=== PATIENT | male | born 1965 | race Caucasian/White ===

== ENCOUNTER 2025-09-13 15:52 | Emergency (ER) | payer OTHER, SELFPAY ==
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
--- NOTE | ~2025-09-13 | XR_ITS ---
CLINICAL HISTORY: trauma, injury 4 view left knee Comparison: None provided Findings: No fractures or dislocations. No significant loss of joint space, osteophytes, or erosions. No joint effusion. No radiopaque foreign body. Enthesopathy at the insertion of the quadriceps tendon and origin of the patellar tendon. IMPRESSION: 1. Enthesopathy at the insertion of the quadriceps tendon and origin of the patellar tendon. 2. No acute osseous injury. This document has been electronically signed by: Brandon Benoit MD on 09/13/2025 17:37:33
--- NOTE | ~2025-09-13 | XR_ITS ---
CLINICAL HISTORY: dyspnea on exertion, chest pain 2 view chest x-ray Comparison: None provided Findings: The lungs are clear. Heart size is normal. No acute fracture. IMPRESSION: 1. No acute findings. This document has been electronically signed by: Brandon Benoit MD on 09/13/2025 17:36:57
[2025-09-13 15:58] VITALS: BP 160/100; PULSE 90; O2SAT 98
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
[2025-09-13 16:11] VITALS: BP 136/92; PULSE 95; RESP 20; TEMP 36.5; O2SAT 100; BMI 31.2
[2025-09-13 16:15] VITALS: BP 136/92; PULSE 95; RESP 20; TEMP 36.5; O2SAT 100
--- NOTE | 2025-09-13 16:15 | ECG_ITS ---
Test Reason : CP Blood Pressure : */* mmHG Vent. Rate : 82 BPM Atrial Rate : 82 BPM P-R Int : 164 ms QRS Dur : 90 ms QT Int : 352 ms P-R-T Axes : 50 -9 25 degrees QTcB Int : 411 ms Normal sinus rhythm Normal ECG When compared with ECG of 08-Oct-2010 15:52, No significant changes seen Referred By: Derick Cox Electronically Signed By: Lobo Beltran
[2025-09-13 16:22] LABS: Glucose, Whole Blood 253 mg/dL (60-115)
--- NOTE | 2025-09-13 16:24 | PC.NURSE ---
BS on arrival 253
--- OUTSIDE RECORDS SUMMARY | 2025-09-13 16:36 | XMS_ITS | Encounter Summary ---
Author Organization [employer] Address 75 [facility] 7t [place] [address] Care Team Providers Care Host/Hostess Name Role Phone Con Agee NP Primary Care Provider + [phone] Hieu Mandujano Unavailable Unavail able Nina Claudio Unavailable Unavailable Encounter Details Date Type Department Care Team (Late st Contact Info) Description 04/17/2025 Patient Outreach [facility] Case Management [address] [place] [address] Leidy Waters Social History Tobacco Use Types Packs/Day Years [...] t he electric, gas, oil or water company threatened to shut off services in your [...] AM EDT documented as of this encounter Functional Status * Over the past 2 weeks, how often have you been bothered by any of the following problems? Question Answer Date of Assessment Author Little interest or pleasure in doing things Not at all 04/19/2025 8:24 AM EDT Cheri Napoles RMA Feeling down, depressed, or hopeless Not at all 04/19/2025 8:24 AM EDT Cheri Napoles RMA Patient Health Questionnaire -2 Score 0 04/19/2025 8:24 AM EDT Cheri Napoles RMA documented as of this encounter Plan of Treatment Upcoming Encounters Date Type Department Care Team (Late st Contact Info) Description 10/12/2025 9:20 AM EST Office Visit [facility] MEDICAL [address] [place] [address] Darlene Gillis MD 70 [place] [address] 10/24/2025 8:30 AM EST Office Visit [facility] Dental [address] [place] [address] Estrella Bowen LLD 9 [place] [address] documented as of this encounter Visit Diagnoses Not on filedocumented in this encounter Care Teams Host/Hostess Relationship Specialty Start Date End Date Con Agee NP 70 [place] [address] PCP - General Internal Medicine 02/25/23 Hieu Mandujano Community Health Worker 09/07/23 Nina Claudio Community Health Worker 01/25/24 Dodie Scherer Armor Officer 09/02/23 documented as of this encounter
--- OUTSIDE RECORDS SUMMARY | 2025-09-13 16:36 | XMS_ITS | Encounter Summary ---
Author Organization [employer] Address 75 [facility] 7t [place] [address] Care Team Providers Care Lumber Driver Name Role Phone Con Agee [employer] Primary Care Provider + [phone] Hieu Mandujano Unavailable Unavail able Nina Claudio Unavailable Unavailable Encounter Details Date Type Department Care Team (Late st Contact Info) Description 01/02/2025 Orders Only [facility] [address] [place] [address] Con Agee, JITENDRA [address] [place] [address] Social History Tobacco Use Types Packs/Day Years Used Date Smoking Tobacco: Never Smokeless Tobacco: Never Alcohol Use Standard Drinks/Week Comments Not Currently 3 (1 standard drink = 0.6 oz pur e alcohol) 1x a month PHQ-2 Answer Date Recorded Patient Health Questionnaire-2 Score 0 03/11/2023 Housing Stability Answer Date Recorded What is your housing situation today? I have lilia howard 08/02/[address] you li ve. Do you have problems with any of the following? None of the above 08/02/2023 Food Insecurity Answer Date Recorded Within the past 12 months, y ou worried that your food would run out before you got money to buy more: Never True 08/02/2023 Within the past 12 months,th e food you bought just didn't last and you didn't have enough money to get more: Never True Transportation Answer Date Recorded In the past 12 months, has l ack of transportation kept you from medical appts, meetings, work or from getting things needed for daily living? No 08/02/2023 Intimate Partner Violence Answer Date R ecorded [...] the past 12 months, has t he [employer], gas, oil or water company threatened to shut off services in your home? I am not sure 03/16/2024 Depression Answer Date Recorded Patient Health Questionnaire-2 Score 0 03/11/2023 Sex and Gender Information Value Date Recorded Sex Assigned at Male 02/25/2023 8:51 AM EDT Legal Sex Male 8:47 AM EDT Gender Identity Male 02/25/2023 8:51 AM EDT Sexual Orientation Straight 02/25/2023 9: 26 AM EDT documented as of this encounter Plan of Treatment Upcoming Encounters Date Type Department Care Team (Late st Contact Info) Description 10/12/2025 9:20 AM EST Office Visit [facility] MEDICAL [address] [place] [address] Darlene Gillis MD [address] [place] [address] 10/24/2025 8:30 AM EST Office Visit [facility] [address] [place] [address] Estrella Bowen LLD 9 [place] [address] documented as of this encounter Procedures Procedure Name Priority Date/Time Associated Diagnosis Comments BASIC METABOLIC PANEL Routine 01/01/2025 9:19 AM EDT XR CHEST 2 VIEWS Routine 01/01/2025 9:18 AM EDT documented in this encounter Results * Basic Metabolic Panel (01/01/2025 9:19 AM EDT) Blood Venous blood specimen / Unknown Con Agee [employer] LAB BLOOD ORDERABLES Final R esult * XR Chest 2 Views (01/01/2025 9:18 AM EDT) Anatomical Region Laterality Modality Chest Radiographic Cha ging Con Agee VP [employer] IMG XR PROCEDURES Final Resu lt documented in this encounter Visit Diagnoses Not on filedocumented in this encounter Care Teams Lumber Driver Relationship Specialty Start Date End Date Con Agee NP [address] [place] [address] PCP - General Internal Medicine 02/25/23 Hieu Mandujano Community Health Worker 09/07/23 Nina Claudio Community Health Worker 01/25/24 Dodie Scherer Solar Resource Assessor 09/02/23 documented as of this encounter
--- OUTSIDE RECORDS SUMMARY | 2025-09-13 16:36 | XMS_ITS | Encounter Summary ---
Author Organization [facility] Address [address] [place] [address] [place] [address] Phone Care Team Providers Care Well Logger Name Role Phone Pcp, Unknown Primary Care Provider Unavailabl e Encounter Details Date Type Department Care Team (Late st Contact Info) Description 11/22/2023 Procedure Pass [facility], Ct Scan - [address] [address] Social History Tobacco Use Types Packs/Day Years Used Date Smoking Tobacco: Never Assessed Education Answer Date Recorded Are you interested in more education? Not on josie e 11/22/2023 Are you concerned about learning? Not on file 11/22/2023 No 11/22/2023 No 11/22/2023 Digital Access Answer Date Recorded No 11/22/2023 No 11/22/2023 Reliable internet access at home? Not on file 11/22/2023 Device with a working camera? Not on file Sex and Gender Information Value Date Recorded Sex Assigned at Male 11/22/2023 5:30 PM EST Legal Sex Female 5:18 PM EST Gender Identity Male 11/22/2023 5:30 PM EST Sexual Orientation Not on file documented as of this encounter Functional Status * Calculated C-SSRS Risk Score (Lifetime/Recent) Answer Date of Assessment Author No Risk Indicated 11/22/2023 5:30 PM EST Erick Erwin RN * [place] Suicide Severity Rating Scale (Screener/Recent Self-Report) Question Answer Date of Assessment Author 1. Wish to be (Past 1 Month) No 11/22/2023 5:30 PM EST Erick Erwin RN 2. Non-Specific Active Suicidal Thoughts (Past 1 Month) No 11/22/2023 5:30 PM Erick Giraldo, ЛЮИЯ 6. Suicidal Behavior (Lifetime) No 11/22/2023 5:30 PM Erick Giraldo RN documented as of this encounter Plan of Treatment Not on file documented as of this encounter Visit Diagnoses Not on filedocumented in this encounter Care Teams Well Logger Relationship Specialty Start Date End Date Pcp, Unknown PCP - General 11/22/23 documented as of this encounter Additional Source Comments The information contained in this document represents components of the legal health record. It is not the complete legal health record.[facility]
--- OUTSIDE RECORDS SUMMARY | 2025-09-13 16:36 | XMS_ITS | Encounter Summary ---
Author Organization [facility] Address [address] [place] [address] Phone Care Team Providers Care Supervisor Frame Sample And Pattern Name Role Phone Pcp, Unknown Primary Care Provider Unavailabl e Encounter Details Date Type Department Care Team (Late st Contact Info) Description 02/17/2024 Ancillary Orders [facility], X-Ray - [address] [place] [address] Con Agee, JITENDRA 70 [place] [address] Left leg pain (Primary Dx) Social History Tobacco Use Types Packs/Day Years [...] on file documented as of this encounter Plan of Treatment Not on file documented as of this encounter Results * XR Tibia Fibula 2 Views (Left) (02/17/2024 12:34 PM EDT) Anatomical Region Laterality Modality Leg Left Computed Radiogr aphy 02/18/2024 4:50 PM EDT Impressions 02/18/2024 4:51 PM EDT Nonspecific soft tissue irregularity throughout the lower leg. No acute osseous abnormality in the left tibia/fibula. Narrative 02/18/2024 4:51 PM EDT XR TIBIA FIBULA 2 VIEWS (LEFT) Referring clinician's provided indication for this examination in Epic: Pain COMPARISON: No relevant comparison. FINDINGS: No fracture or dislocation. Partially visualized posttraumatic and degenerative findings in the left knee/ankle. Soft tissue irregularity diffusely throughout the left lower leg. Procedure Note Rogerio Ruvalcaba MD - 02/18/2024 XR TIBIA FIBULA 2 VIEWS (LEFT) Referring clinician's provided indication for this examination in Epic:Pain COMPARISON: No relevant comparison. FINDINGS: No fracture or dislocation. Partially visualized posttraumatic anddegenerative findings in the left knee/ankle. Soft tissue irregularitydiffusely throughout the left lower leg. IMPRESSION: Nonspecific soft tissue irregularity throughout the lower leg. No acuteosseous abnormality in the left tibia/fibula. Con Agee SENIOR MARKET INTELLIGENCE CONSULTANT IMG XR LOWER EXTREMIT Y Final Result documented in this encounter Visit Diagnoses Diagnosis Left leg pain Pain in soft tissues of limb Left leg pain- Primary Pain in soft tissues of limb documented in this encounter Care Teams Supervisor Frame Sample And Pattern Relationship Specialty Start Date End Date Pcp, Unknown PCP - General 11/22/23 documented as of this encounter Additional Source Comments The information contained in this document represents components of the legal health record. It is not the complete legal health record.[facility]
--- OUTSIDE RECORDS SUMMARY | 2025-09-13 16:36 | XMS_ITS | Encounter Summary ---
Author Organization [facility] Address [address] [place] [address] [place] [address] Phone Care Team Providers Care Boiler Service Technician Name Role Phone Pcp, Unknown Primary Care Provider Unavailabl e Encounter Details Date Type Department Care Team ([facility] st Contact Info) Description 02/17/2024 Transcribe Orders Virtual Department [address] [place] [address] Con Agee NP 70 [place] [address] Left leg pain (Primary Dx) Social History [...] documented as of this encounter Visit Diagnoses Diagnosis Left leg pain- Primary Pain in soft tissues of limb documented in this encounter Care Teams Boiler Service Technician Relationship Specialty Start Date End Date Pcp, Unknown PCP - General 11/22/23 documented as of this encounter Additional Source Comments The information contained in this document represents components of the legal health record. It is not the complete legal health record.[facility]
--- OUTSIDE RECORDS SUMMARY | 2025-09-13 16:36 | XMS_ITS | Encounter Summary ---
Author Organization [facility] Address [address] [place] [address] [place] [address] Phone Care Team Providers Care Care Asst Name Role Phone Pcp, Unknown Primary Care Provider Unavailabl e Encounter Details Date Type Department Care Team (Late st Contact Info) Description 02/17/2024 Ancillary Orders [facility], X-Ray - [address] [place] [address] Con Agee, JITENDRA [address] [place] [address] Left leg pain (Primary Dx) Social History [...] limb documented in this encounter Care Teams Care Asst Relationship Specialty Start Date End Date Pcp, Unknown PCP - General 2/5/24 documented as of this encounter Additional Source Comments The information contained in this document represents components of the legal health record. It is not the complete legal health record.[facility]
--- OUTSIDE RECORDS SUMMARY | 2025-09-13 16:36 | XMS_ITS | Clinical Summary ---
Author Organization [facility] Address [address] [place] [address] Phone Care Team Providers Care Manager Printing Name Role Phone Pcp, Unknown Primary Care Provider Unavailabl e Allergies Active Allergy Reactions Criticality Noted Date Comments Bee Pollen 11/22/2023 Chocolate 11/22/2023 Influenza Virus Vac. Tri-Split 11/22 Lactose 11/22/2023 Latex 11/22/2023 Niacin 11/22/2023 Penicillins 11/22/2023 Phenytoin 11/22/2023 Tomato 11/22/2023 Medications atorvastatin (LIPITOR) 40 MG tablet Take 40 mg by mouth daily. 03/20/2023 Active lisinopril (PRINIVIL,ZESTRI L) 10 MG tablet Take 10 mg by mouth daily. 11/09/2023 Active metFORMIN (GLUCOPHAGE) 500 MG tablet Take 500 mg by mouth 2 (two) times a day with meals. 03/11/2023 Active metoprolol tartrate (LOPRESSOR) 25 MG tablet Take 25 mg by mouth 2 (two) times a day. 03/20/2023 Active gabapentin (NEURONTIN) 100 MG capsule Take 100 mg by mouth 3 (three) times a day. 01/20/2023 Active Active Problems No known active problems Social History Tobacco Use Types Packs/Day Years [...] with a working camera? Not on file Intimate Partner Violence Answer Date R ecorded Are you denied basic needs s uch as food, clothing, or medical care? No 03/09/2024 In the past 12 months have y ou been in a relationship with a person who hurts, threatens, or tries to control you? No 03/09/2024 Are you denied basic needs s uch as food, clothing, or medical care? No 03/09/2024 In the past 12 months have y ou been in a relationship with a person who hurts, threatens, or tries to control you? No 03/09/2024 Sex and Gender Information Value Date Recorded Sex Assigned at Male 11/22/2023 5:30 PM EST Legal Sex Female 5:18 PM EST Gender Identity Male 11/22/2023 5:30 PM EST Sexual Orientation Not on file Last Filed Vital Signs Vital Sign Reading Time Taken Comments Blood Pressure 121/88 03/09/2024 1:16 PM EDT Pulse 82 03/09/2024 1:17 PM EDT Temperature 36.7 C (98 F) 03/09/2024 1:16 PM EDT Respiratory Rate 16 03/09/2024 1:16 PM EDT Oxygen Saturation 99% 03/09/2024 1:16 PM EDT Inhaled Oxygen Concentration - - Weight 100.7 kg (222 lb) 03/09/2024 1:16 PM EDT Height 180.3 cm (5' 11 ) 03/09/2024 1:16 PM EDT Body Mass Index 30.96 03/09/2024 1:16 PM EDT Plan of Treatment Health Maintenance Due Date Last Done Comments DEPRESSION SCREENING 1977 SMOKING Hx and SMOKELESS TOBACCO SCREENING 1978 HEPATITIS C SCREENING 1983 HIV ONE-TIME SCREENING (18-6 5 YEARS) 1983 PAP SMEAR 1986 MAMMOGRAM 2005 COLOGUARD 2010 COLONOSCOPY 2010 COLORECTAL CANCER SCREENING 2010 FIT TEST 2010 FOBT 2010 SIGMOIDOSCOPY 2010 VIRTUAL COLONOSCOPY 2010 PNEUMOCOCCAL VACCINES (50+ years) (1 of 1 - PCV) 2015 ZOSTER VACCINES (1 of 2) 2015 CREATININE LEVEL 03/09/2025 03/09/2024, 11/22/2023 POTASSIUM LEVEL 03/09/2025 03/09/2024, 11/22/2023 COVID-19 VACCINE (1 - 2024-2 6 season) 2025 SCREENING FOR DIABETES 01/17/2027 01/18/2024 LIPID PANEL 03/05/2028 03/05/2023 Adult Td,Tdap Booster 03/17/2032 03/17/2022 , 06/17/2018 RSV VACCINE (1 - 1-dose 75+ series) 2040 HEPATITIS A VACCINES Aged Out No long er eligible based on patient's age to complete this topic HIB VACCINES Aged Out No longer eligi ble based on patient's age to complete this topic MENINGOCOCCAL VACCINES (ACWY) Aged Out No longer eligible based on patient's age to complete this topic MENINGOCOCCAL VACCINES (B) Aged Out N o longer eligible based on patient's age to complete this topic Medical Devices Not on file Procedures Procedure Name Priority Date/Time Associated Diagnosis Comments BASIC METABOLIC PANEL (BMP) STAT 03/09/2024 1:39 PM EDT from Last 3 Months or Most Recently Relevant to Health Maintenance Results * (ABNORMAL) Basic metabolic panel (03/09/2024 1:39 PM EDT) SODIUM 137 133 - 146 mmol/L [facility] CHLORIDE 102 96 - 108 mmol/L [facility] POTASSIUM 4.1 3.3 - 5.1 mmol/L [facility] Comment:Specimen slightly he molyzed, result may be falsely elevated. CO2 24 21 - 35 mmol/L [facility] BUN 15 6 - 19 mg/dL [facility] CREATININE 0.80 0.5 - 1.5 mg/dL [facility] GLUCOSE 253(H) 70 - 99 mg/dL [facility] CALCIUM 9.9 8.4 - 10.3 mg/dL [facility] EGFR 85 >59 mL/min/1.7 3m2 [facility] Comment:Estimated glomerular filtration rate calculated using the CKD-EPI refit equation. ANION GAP 15 10 - 20 mmol/L [facility] Blood 03/09/2024 1:39 PM EDT 03/09/2024 1:44 PM EDT Jude Santana Caffyn DO LAB BLOOD BKR ORDERABLES Final Result Performing Organization Address City/State/[facility] Co de Phone Number [facility] [address] [place] [address] from Last 3 Months or Most Recently Relevant to Health Maintenance Insurance [facility] MEDICARE REPLACEMENT [facility] MEDICARE REPLACEMENT [id number] [facility] MEDICARE REPLACEMENT MEDICARE REPLACEMENT MEDICARE REPLACEMENT SUSI GARCIA [facility] Care Teams Manager Printing Relationship Specialty Start Date End Date Pcp, Unknown PCP - General 11/22/23 Additional Source Comments The information contained in this document represents components of the legal health record. It is not the complete legal health record.[facility]
--- OUTSIDE RECORDS SUMMARY | 2025-09-13 16:36 | XMS_ITS | Encounter Summary ---
Author Organization [employer] Address [address] [facility] 7t [place] [address] Care Team Providers Care Staff Occupational Therapist Name Role Phone Con Agee COW PUNCHER Primary Care Provider + [phone] Hieu Mandujano Unavailable Unavail able Nina Claudio Unavailable Unavailable Reason for Visit * Reason Comments Med Refill Encounter Details Date Type Department Care Team (Late st Contact Info) Description 01/24/2025 Refill [facility] [address] [place] [address] Con Agee, JITENDRA [address] [place] [address] Social History Tobacco Use Types Packs/Day Years [...] Description 10/12/2025 9:20 AM EST Office Visit [place] [facility] [address] [place] [address] Darlene Gillis MD [address] [place] [address] 10/24/2025 8:30 AM EST Office Visit [place] [facility] [address] [place] [address] Estrella Bowen LLD [address] [place] [address] documented as of this encounter Visit Diagnoses Not on filedocumented in this encounter Care Teams Staff Occupational Therapist Relationship Specialty Start Date End Date Con Agee NP [address] [place] [address] PCP - General Internal Medicine 02/25/23 Hieu Mandujano Community Health Worker 09/07/23 Nina Claudio Community Health Worker 01/25/24 Dodie Scherer Aquatic Facility Manager 09/02/23 documented as of this encounter
--- OUTSIDE RECORDS SUMMARY | 2025-09-13 16:36 | XMS_ITS | Encounter Summary ---
Author Organization [employer] Address 75 [facility] 7t [place] [address] Care Team Providers Care Field Superintendent Name Role Phone Con Agee NP Primary Care Provider + [phone] Hieu Mandujano Unavailable Unavail able Nina Claudio Unavailable Unavailable Encounter Details Date Type Department Care Team (Late st Contact Info) Description 02/17/2024 Telephone [place] [facility] MED[facility] [address] [place] [address] Johanne Rucker, ЮЛИЯ Social History Tobacco Use Types Packs/Day Years [...] things needed for daily living? No 08/02/2023 Utilities Answer Date Recorded In the past 12 months, has t he electric, gas, oil or water company threatened to shut off services in your home? No 08/02/2023 Depression Answer Date Recorded Patient Health Questionnaire-2 Score 0 03/11/2023 Sex and Gender Information Value Date Recorded Sex Assigned at Male 02/25/2023 8:51 AM EDT Legal Sex Male 8:47 AM EDT Gender Identity Male 02/25/2023 8:51 AM EDT Sexual Orientation Straight 02/25/2023 9: 26 AM EDT documented as of this encounter Miscellaneous Notes * Telephone Encounter - Johanne Rucker RN - 02/18/2024 8:36 AM EDT LMOM to notify pt of new letter. Letter let with cornice upholsterer for pt to picker. * Telephone Encounter - Con Agee NP - 02/17/2024 5:20 PM EDT I cannot change my old letter, which I do think was correct at the time it was written. I have written a new letter to be given to the patient in support of his request for housing assistance. (In provider box at [facility]). If pt has other housing related issues, he should speak to a CHW (Nina). Thanks. * Telephone Encounter - Johanne Rucker RN - 02/17/2024 11:17 AM EDT Pt came to cornice upholsterer after his appt with [facility]. Pt reports that the letter that [facility] wrote for housing is all wrong . Pt reports he needs to letter to state that he has sob. Pt is also unhappy with the mention of mental health in the letter. Pt states that he used to walk 30 miles a day and not he is out of breath when he lean over to tie his shoes., dizziness when going from sitting to standing. States he now need help taking out the garbage and has a friend helping him with these tasks. Pt reports that he has fallen multiple times recently and states he has been unconscious 3x due to falls. Pt is speaking in full sentences and with no labored breathing noted. Pt states that he needs JL to amend the letter today or he will lose his housing. Pt states the original letter was submitted to housing- unclear the status/outcome of letter. Routing to pcp as fyi documented in this encounter Plan of Treatment Upcoming Encounters Date Type Department Care Team (Late st Contact Info) Description 10/12/2025 9:20 AM EST Office Visit [facility] MED[facility] [address] [place] [address] Darlene Gillis MD [address] [place] [address] 10/24/2025 8:30 AM EST Office Visit [facility] Dental [address] [place] [address] Estrella Bowen LLD 9 [place] [address] documented as of this encounter Visit Diagnoses Not on filedocumented in this encounter Care Teams Field Superintendent Relationship Specialty Start Date End Date Con gAee NP [address] [place] [address] PCP - General Internal Medicine 02/25/23 Hieu Mandujano Community Health Worker 09/07/23 Nina Claudio Community Health Worker 01/25/24 Dodie Scehrer Sulphate Tester 09/02/23 documented as of this encounter
--- OUTSIDE RECORDS SUMMARY | 2025-09-13 16:36 | XMS_ITS | Encounter Summary ---
Author Organization [facility] Address [address] [place] [address] [place] [address] Phone Care Team Providers Care Addiction Professional Name Role Phone Pcp, Unknown Primary Care Provider Unavailabl e Encounter Details Date Type Department Care Team ([facility] st Contact Info) Description 03/01/2024 Transcribe Orders Virtual Department [address] [place] [address] Con Agee NP [address] [place] [address] Thyroid nodule (Primary Dx) Social History Tobacco Use Types [...] as of this encounter Visit Diagnoses Diagnosis Thyroid nodule- Primary Nontoxic uninodular goiter documented in this encounter Care Teams Addiction Professional Relationship Specialty Start Date End Date Pcp, Unknown PCP - General 11/22/23 documented as of this encounter Additional Source Comments The information contained in this document represents components of the legal health record. It is not the complete legal health record.[facility]
--- OUTSIDE RECORDS SUMMARY | 2025-09-13 16:36 | XMS_ITS | Clinical Summary ---
Author Organization [facility] ity Address [address] [place] [address] Care Team Providers Care Shrimping Boat Captain Name Role Phone Unavailable Primary Care Provider Unavailabl e Social History Tobacco Use Types Packs/Day Years Used Date Smoking Tobacco: Never Assessed Sex and Gender Information Value Date Recorded Sex Assigned at Not on file Legal Sex Male 11:06 PM EST Gender Identity Not on file Sexual Orientation Not on file Plan of Treatment Health Maintenance Due Date Last Done Comments Hepatitis B Vaccines (1 of 3 - 19+ 3-dose series) 1984 Pneumococcal Vaccine: 50+ Years (1 of 1 - PCV) 2015 Zoster Vaccines (1 of 2) 2015 Depression Screening 10/18/2024 COVID-19 Vaccine ( season) 2025 10/07/2023, 10/22/2021, 03/09/2021, Additional history exists Influenza Vaccine (#1) 2025 DTaP,Tdap,and Td Vaccines (3 - Td or Tdap) 03/17/2032 03/17/2022, 06/17/2018 RSV Immunization Adult Patients (1 - 1-dose 75+ series) 2040 HIB Vaccines Aged Out No longer eligi ble based on patient's age to complete this topic HPV Vaccines Aged Out No longer eligi ble based on patient's age to complete this topic Hepatitis A Vaccines Aged Out No long er eligible based on patient's age to complete this topic IPV Vaccines Aged Out No longer eligi ble based on patient's age to complete this topic MMR Vaccines Aged Out No longer eligi ble based on patient's age to complete this topic Meningococcal ACWY Vaccine Aged Out N o longer eligible based on patient's age to complete this topic Meningococcal B Vaccine Aged Out No l onger eligible based on patient's age to complete this topic RSV Immunization Patients Under 20 months Aged Out No longer eligible based on patient's age to complete this topic Varicella Vaccines Aged Out No longer eligible based on patient's age to complete this topic
--- OUTSIDE RECORDS SUMMARY | 2025-09-13 16:36 | XMS_ITS | Encounter Summary ---
Author Organization [employer] Address [address] [facility] 7t [place] [address] Care Team Providers Care Professional Bass Fisher Name Role Phone Con Agee NP Primary Care Provider + [phone] Hieu Mandujano Unavailable Unavail able Nina Claudio Unavailable Unavailable Encounter Details Date Type Department Care Team (Late st Contact Info) Description 03/13/2024 Orders Only [facility] MEDICAL [address] [place] [address] Provider, MD Radha Social History Tobacco Use Types Packs/Day Years [...] the past 12 months, has t he [employer], gas, oil or water [employer] threatened to shut off services in your [...] Description 10/12/2025 9:20 AM EST Office Visit [facility] MEDICAL [address] [place] [address] Darlene Gillis MD [address] [place] [address] 10/24/2025 8:30 AM EST Office Visit [facility] Dental [address] [place] [address] Estrella Bowen LLD [address] [place] [address] documented as of this encounter Procedures Procedure Name Priority Date/Time Associated Diagnosis Comments ECG 12-LEAD Routine 03/03/2024 8:40 AM EDT documented in this encounter Results * ECG 12 lead (03/03/2024 8:40 AM EDT) us Historical Provider ECG ORDERABLES Final Res ult documented in this encounter Visit Diagnoses Not on filedocumented in this encounter Care Teams Professional Bass Fisher Relationship Specialty Start Date End Date Con Agee NP [address] [place] [address] PCP - General Internal Medicine 02/25/23 Hieu Mandujano Community Health Worker 09/07/23 Nina Claudio Community Health Worker 01/25/24 Dodie Scherer Processing Technologist 09/02/23 documented as of this encounter
--- OUTSIDE RECORDS SUMMARY | 2025-09-13 16:36 | XMS_ITS | Encounter Summary ---
Author Organization [employer] Address [address] [facility] 7t [place] [address] Care Team Providers Care Tube Molder Fiberglass Name Role Phone Con Agee WATER RESOURCES PROGRAM DIRECTOR Primary Care Provider + [phone] Hieu Mandujano Unavailable Unavail able Nina Claudio Unavailable Unavailable Encounter Details Date Type Department Care Team (Late st Contact Info) Description 06/29/2024 Orders Only [facility] [address] [place] [address] Con Agee, JITENDRA [address] [place] [address] Social History Tobacco Use Types Packs/Day Years [...] the past 12 months, has t he [employer], gas, oil or water company threatened to [...] Description 10/12/2025 9:20 AM EST Office Visit [facility] MEDICAL [address] [place] [address] Darlene Gillis MD [address] [place] [address] 10/24/2025 8:30 AM EST Office Visit [facility] Dental [address] [place] [address] Estrella Bowen LLD 9 [place] [address] documented as of this encounter Procedures Procedure Name Priority Date/Time Associated Diagnosis Comments ECG 12-LEAD Routine 06/26/2024 9:34 AM EDT documented in this encounter Results * ECG 12 lead (06/26/2024 9:34 AM EDT) Con Agee NP ECG ORDERABLES Final Result documented in this encounter Visit Diagnoses Not on filedocumented in this encounter Care Teams Tube Molder Fiberglass Relationship Specialty Start Date End Date Con Agee NP [address] [place] [address] PCP - General Internal Medicine 02/25/23 Hieu Mandujano Community Health Worker 09/07/23 Nina Claudio Community Health Worker 01/25/24 Dodie Scherer Pediatric Physical Therapy Assistant 09/02/23 documented as of this encounter
--- OUTSIDE RECORDS SUMMARY | 2025-09-13 16:36 | XMS_ITS | Clinical Summary ---
Author Organization [employer] Address [address] [facility] 7t [place] [address] Care Team Providers Care Tomography Technologist Name Role Phone Con Agee NP Primary Care Provider [phone] Hieu Mandujano Unavailable Unavail able Nina Claudio Unavailable Unavailable Allergies Active Allergy Reactions Criticality Noted Date Comments Bee Venom 03/03/2023 Chocolate Rash Low 03/04/2023 Influenza Virus Vaccine 03/05/2023 Lactose 03/05/2023 Latex 03/03/2023 Niacin 03/05/2023 Penicillins Swelling 03/03/2023 Phenytoin 03/05/2023 Tomato 03/05/2023 ketchup Medications chlorhexidine (Peridex) 0.12 % solution SWISH AND RINSE WITH 15MLS TWICE DAILY FOR 30 SECONDS THEN SPIT OUT 120 mL 03/20/20 23 Active Additional Information Patient not taking.Reported on 09/11/2025 Ketoconazole 1 % shampooIndicati ons:Seborrheic dermatitis of scalp Shampoo and leave on for 5-10 minutes, then rinse. Use for scaly skin on scalp, face and chest. Use every other day Do not start before November 11, 2023. 200 mL 2 11/11/19 24 Active Additional Information Patient not taking.Reported on 09/11/2025 cyclobenzaprine (Flexeril) 10 MG tablet TAKE 1 TABLET BY MOUTH 3 TIMES A DAY,X10 DAYS, NEEDED FOR SPASM 01/24/20 24 Active atorvastatin (Lipitor) 40 MG tabletIndicatio ns:Hypercholest eremia Take 1 tablet (40 mg) by mouth Once per day. 90 tablet 3 05/02/20 24 Active metoprolol tartrate (Lopressor) 25 MG tablet Take 1 tablet (25 mg) by mouth 2 times daily. 180 tablet 3 12/30/19 25 2025 Active Alcohol Swabs (Alcohol Prep Pads) 70 % padsIndications :Type 2 diabetes mellitus with other circulatory complication, without long-term current use of insulin ([facility]) 1 Pad by Other route Once per day. 100 each 3 12/30/19 25 Active glucose blood (FREESTYLE LITE) test stripIndication s:Type 2 diabetes mellitus with other circulatory complication, without long-term current use of insulin ([facility]) TEST BLOOD SUGAR DAILY 100 each 07/09/20 25 Active Dulaglutide (Trulicity) 0.75 MG/0.5ML solution auto-injectorIn dications:Type 2 diabetes mellitus with other circulatory complication, without long-term current use of insulin ([facility]) INJECT 0.5 ML UNDER THE SKIN 1 (ONE) TIME PER WEEK. 6 mL 1 5 4:46 PM EST 08/23/20 25 Active gabapentin (Neurontin) 100 MG capsuleIndicati ons:Agitation TAKE 1 CAPSULE (100 MG) BY MOUTH 3 TIMES DAILY. 90 capsule 5 4:38 PM EST 09/06/20 25 Active lisinopril 10 MG tabletIndicatio ns:Primary hypertension TAKE 1 TABLET BY MOUTH EVERY DAY 90 tablet 3 5 4:38 PM EST 09/06/20 25 Active clobetasol (Temovate) 0.05 % creamIndication s:Chronic eczema of hand Apply twice daily to eczema on wrists 30 g 1 09/11/20 25 Active clotrimazole (Lotrimin) 1 % creamIndication s:Tinea cruris Apply topically 2 times daily. Apply twice daily to itchy rash in groin for two weeks 30 g 1 09/11/20 25 Active triamcinolone (Kenalog) 0.5 % creamIndication s:Chronic eczema of hand Apply topically 3 times daily. Apply to affected skin on wrist 45 g 1 02/29/20 24 2024 Discontinued clotrimazole (Lotrimin) 1 % creamIndication s:Tinea pedis of both feet Apply topically 2 times daily. Apply between toes. NOT TO BE USED ON HANDS 30 g 1 02/29/20 24 2024 Discontinued(R eorder (will not trigger notification to Pharmacy)) Dulaglutide (Trulicity) 0.75 MG/0.5ML solution auto-injectorIn dications:Type 2 diabetes mellitus with other circulatory complication, without long-term current use of insulin (HCC) Inject 0.5 mL under the skin 1 (one) time per week. 6 mL 1 01/12/20 25 2024 Discontinued lisinopril 10 MG tabletIndicatio ns:Primary hypertension TAKE 1 TABLET BY MOUTH EVERY DAY 90 tablet 06/12/20 25 2024 Discontinued gabapentin (Neurontin) 100 MG capsuleIndicati ons:Agitation TAKE 1 CAPSULE (100 MG) BY MOUTH 3 TIMES DAILY. 90 capsule 1 07/05/202024 Discontinued Active Problems Problem Noted Date Diagnosed Date Bunion of left foot 02/29/2024 Hearing loss of left ear 03/04/2023 Thyroid nodule 03/04/2023 Obesity (BMI 30.0-34.9) 03/04/2023 Sciatica of right side 03/04/2023 TBI (traumatic brain injury) ([facility]/HCC) (self-reported, CT of head normal 2021) 03/04/2023 CAD (coronary artery disease ) (self-reported, no cardiac testing as of 12/2024) 03/03/2023 Hypercholesteremia 03/03/2023 Presence of stent in coronar y artery (self-reported, no documentation) 03/03/2023 Type 2 diabetes mellitus 03/03/2023 Chronic pain of left ankle 03/03/2023 Chronic eczema of hand 03/03/2023 Hernia, umbilical 03/03/2023 Encounters Date Type Department Care Team Description 09/11/2025 8:30 AM EST Office Visit [facility] MEDICAL [address] [place] [address] Con Agee NP Emotional lability (Primary Dx); Type 2 diabetes mellitus with other circulatory complication, without long-term current use of insulin (HCC); Primary hypertension; Hypercholesteremia; Thyroid nodule; Chronic eczema of hand; Tinea cruris 09/05/[address] [address] Con Agee NP Primary hypertension 09/05/[address] [address] Con Agee NP Agitation 08/23/[address] [address] Con Agee NP Type 2 diabetes mellitus with other circulatory complication, without long-term current use of insulin ([facility]) 07/24/2025 9:30 AM EDT Clinical Support [address] [address] Halina Robert LPN Type 2 diabetes mellitus with other circulatory complication, without long-term current use of insulin ([facility]) 07/21/2025 Results Follow-Up [address] [address] Darlene Gillis MD POCT glycosylated hemoglobin (Hgb A1c), TSH with Reflex to Free T4, Lipid Panel, Standard [address], Additional followed-up results: 2 07/16/2025 8:30 AM EDT Office Visit [address] [address] Con Agee NP Type 2 diabetes mellitus with other circulatory complication, without long-term current use of insulin ([facility]) (Primary Dx); Primary hypertension; Hypercholesteremia; Thyroid nodule; Chronic eczema of hand; Seborrheic dermatitis; Traumatic brain injury, with unknown loss of consciousness status, sequela (CMS/HCC); Healthcare maintenance 07/16/2025 Orders Only [address] [address] Con Agee NP 07/09/[address] [address] Con Agee NP Type 2 diabetes mellitus with other circulatory complication, without long-term current use of insulin ([facility]/HCC) 07/04/2025 Refill [facility] MEDICAL [address] [place] [id number] Con Agee NP Agitation (Primary Dx) from Last 3 Months Immunizations Immunization Administration Dates Next Due Moderna Covid-19 Vaccine 12+ 10/07/2023 Pfizer Covid-19 Vaccine 12+ 02/17/2021 Pneumococcal Conjugate PCV 21 04/19/2025 Tdap 03/17/2022,06/17/2018 Social History Tobacco Use Types Packs/Day Years Used Date Smoking Tobacco: Never Smokeless Tobacco: Never Tobacco Cessation:Counseling Given: Not Answered Alcohol Use Standard Drinks/Week Comments Not Currently [...] Orientation Straight 02/25/2023 9: 26 AM EDT Last Filed Vital Signs Vital Sign Reading Time Taken Comments Blood Pressure 164/80 09/11/2025 8:36 AM EST Pulse 120 09/11/2025 8:36 AM EST Temperature 36.9 C (98.4 F) 09/11/2025 8:36 AM EST Respiratory Rate 16 04/11/2024 8:17 AM EDT Oxygen Saturation 98% 07/16/2025 8:33 AM EDT Inhaled Oxygen Concentration - - Weight 108 kg (238 lb) 09/11/2025 8:36 AM EST Height 182.9 cm (6') 09/11/2025 8:36 AM EST Body Mass Index 32.28 09/11/2025 8:36 AM EST Plan of Treatment Upcoming Encounters Date Type Department Care Team (Late st Contact Info) Description 10/12/2025 9:20 AM EST Office Visit [facility] MEDICAL [address] [place] [address] Darlene Gillis MD [address] [place] [address] 10/24/2025 8:30 AM EST Office Visit [facility] Dental [address] [place] [address] Estrella Bowen LLD [address] [place] [address] Health Maintenance Due Date Last Done Comments CT Colonography 1965 Colonoscopy 1965 Colorectal Cancer Screening 1965 Dental Oral Exam 1965 Dental Prophylaxis 1965 Dental X-Ray: Bitewings 1965 Dental X-Ray: Full Mouth 1965 FIT DNA/Cologuard 1965 FIT 1965 FOBT 1965 HIV Screening 1965 Sigmoidoscopy 1965 Disability Screening 1965 Diabetes: Foot Exam 1975 Eye Exam 1975 Hepatitis C Screening 1983 Hepatitis B Vaccines (1 of 3 - 19+ 3-dose series) 1984 RSV Patients and Patients Aged 60 years or older (1 - Risk 50-74 years 1-dose series) 2015 Zoster Vaccines (1 of 2) 2015 COVID-19 Vaccine ( season) 2025 10/07/2023, 11/26/2022, 10/22/2021, Additional history exists Influenza Vaccine (#1) 2025 Tobacco Screening 09/28/2025 09/28/2024 Diabetes: Hemoglobin A1C 10/15/2025 025, 04/19/2025, 10/23/2024, Additional history exists Alcohol/Substance Use Screening 04/19/2026 04/19/2025 Depression Screening 04/19/2026 04/19/2025, 04/19/20 25 SDOH Screening 04/19/2026 04/19/2025 Diabetes: Urine Protein Screening 07/16/2026 07/16/2025, 03/05/2023 Lipid Panel 07/20/2026 07/20/2025, 03/05/2023 DTaP/Tdap/Td Vaccines (3 - Td or Tdap) 03/17/2032 03/17/2022, 06/17/2018 Pneumococcal Vaccine: 50+ Years Completed 04/19/2025 HIB Vaccines Aged Out No longer eligi [...] patient's age to complete this topic Meningococcal Vaccine Aged Out No ky susy eligible based on patient's age to complete this topic RSV under 20 months Aged Out No longe r eligible based on patient's age to complete this topic Rotavirus Vaccines Aged Out No longer eligible based on patient's age to complete this topic Goals Goal Patient Goal Type Associated Problems [...] chronic kidney disease No Con Agee NP Procedures Procedure Name Priority Date/Time Associated Diagnosis Comments POCT GLUCOSE Routine 09/11/2025 8:47 AM EST Type 2 diabetes mellitus with other circulatory complication, without long-term current use of insulin (HCC) POCT GLUCOSE Routine 07/24/2025 9:30 AM EDT Type 2 diabetes mellitus with other circulatory complication, without long-term current use of insulin (HCC) VITAMIN B12 Routine 07/20/2025 8:04 AM EDT Type 2 diabetes mellitus with other circulatory complication, without long-term current use of insulin (HCC) COMPREHENSIVE METABOLIC PANEL Routine 07/20/2025 8:04 AM EDT Primary hypertension LIPID PANEL, STANDARD Routine 07/20/2025 8:04 AM EDT Hypercholesteremia TSH W/REFLEX TO FT4 Routine 07/20/2025 8 :04 AM EDT Thyroid nodule POCT GLYCOSYLATED HEMOGLOBIN (HGB A1C) Routine 07/16/2025 8:44 AM EDT Type 2 diabetes mellitus with other circulatory complication, without long-term current use of insulin ([facility]) ALBUMIN/CREATININE RATIO, RANDOM URINE Routine 07/16/2025 12:00 AM EDT from Last 3 Months Results * (ABNORMAL) POCT glucose manually resulted (09/11/2025 8:47 AM EST) Only the most recent of2 resultswithin the time period is included. [facility] Glucose Blood, POC 391(A) 60 - 200 mg/dL Blood Capillary blood specimen / Unknown 09/11/2025 8:47 AM EST Con Agee NP POINT OF CARE TEST ENTER/ZACKERY T ORDERABLES Final Result * TSH with Reflex to Free T4 (07/20/2025 8:04 AM EDT) [facility] TSH 2.330 0.450 - 4.500 uIU/mL [facility] Blood Venous blood specimen / Unknown 07/20/2025 8:04 AM EDT 07/20/2025 Narrative Resulting Agency Comment Performed at: 01 - [facility] [id number] Document Review Attorney: Bibi Peralta MD, Phone: [phone] Con Agee NP LAB BLOOD ORDERABLES Final R esult [facility] 1 [facility] [address] [place] [address] * Vitamin B12 792314 (07/20/2025 8:04 AM EDT) [facility] Vitamin B12 438 232 - 1,245 pg/mL [facility] Blood Venous blood specimen / Unknown 07/20/2025 8:04 AM EDT 07/20/2025 Narrative Resulting Agency Comment Performed at: [address] [id number] Document Review Attorney: Bibi Peralta MD, Phone: [phone] Con Agee ACCOUNTING FILE CLERK LAB BLOOD ORDERABLES Final R esult Performing Organization Address [facility]/ZIP Co de Phone Number [facility] 1 [facility] [address] [place] [address] * (ABNORMAL) Lipid Panel, Standard [address] (07/20/2025 8:04 AM EDT) [facility] Cholesterol, Total 156 100 - 199 mg/dL [facility] Triglycerides 274(H) 0 - 149 mg/dL [facility] HDL Cholesterol 47 >39 mg/dL [facility] VLDL Cholesterol Yoni 44(H) 5 - 40 mg/dL [facility] LDL Chol Calc (NIH) 65 0 - 99 mg/dL [facility] Blood Venous blood specimen / Unknown 07/20/2025 8:04 AM EDT 07/20/2025 Narrative Resulting Agency Comment Performed at: [address] [id number] Document Review Attorney: Bibi Peralta MD, Phone: [phone] Con Agee ACCOUNTING FILE CLERK LAB BLOOD ORDERABLES Final R esult Performing Organization Address [facility]/ZIP Co de Phone Number [facility] 1 [facility] [address] [place] [address] * (ABNORMAL) Comprehensive Metabolic Panel (07/20/2025 8:04 AM EDT) [facility] Glucose 450(H) 70 - 99 mg/dL [facility] Urea Nitrogen (BUN) 8 6 - 24 mg/dL [facility] Creatinine, Serum 1.05 0.76 - 1.27 mg/dL [facility] eGFR 82 >59 mL/min/1.7 3 [facility] BUN/Creatinine Ratio 8(L) 9 - 20 [facility] Sodium 136 134 - 144 mmol/L [facility] Potassium 4.3 3.5 - 5.2 mmol/L [facility] Chloride 98 96 - 106 mmol/L [facility] Anion Gap 16.0 10.0 - 18.0 mmol/L [facility] Carbon Dioxide 22 20 - 29 mmol/L [facility] Calcium 9.8 8.7 - 10.2 mg/dL [facility] Protein, Total 6.6 6.0 - 8.5 g/dL [facility] Albumin 4.4 3.8 - 4.9 g/dL [facility] Globulin 2.2 1.5 - 4.5 g/dL [facility] Bilirubin, Total 0.7 0.0 - 1.2 mg/dL [facility] Alkaline Phosphatase 99 47 - 123 IU/L [facility] AST 20 0 - 40 IU/L [facility] ALT 22 0 - 44 IU/L [facility] Blood Venous blood specimen / Unknown 07/20/2025 8:04 AM EDT 07/20/2025 Narrative Resulting Agency Comment Performed at: 01 - [address] [id number] Document Review Attorney: Bibi Peralta MD, Phone: [phone] Con Agee NP LAB BLOOD ORDERABLES Final R esult [facility] [address] [place] [address] * (ABNORMAL) POCT glycosylated hemoglobin (Hgb A1c) (07/16/2025 8:44 AM EDT) Hemoglobin A1C 8.9(A) 4.0 - 5.7 % Blood Capillary blood specimen / Unknown 07/16/2025 8:44 AM EDT Con Agee NP POINT OF CARE TEST ENTER/ZACKERY T ORDERABLES Final Result * Albumin/Creatinine Ratio, Random Urine (07/16/2025 12:00 AM EDT) Creatinine, Random Urine 84.8 Not Estab. mg/dL [facility] Albumin, Urine 6.4 Not Estab. ug/mL [facility] Albumin/Creatin ine Ratio 8 0 - 29 mg/g creat [facility] Comment: Normal: 0 - 29 Moderately increased: 30 - 300 Severely increased: >300 07/16/2025 07/16/2025 Comment:URINE Narrative Resulting Agency Comment Performed at: - [facility] [address] [place], [place] [id number] Document Review Attorney: Bibi Peralta MD, Phone: [phone] us Con Agee NP LAB URINE ORDERABLES Final R esult [facility] 1 [facility] [address] [place] [address] from Last 3 Months Additional Health Concerns Active Problems Noted Date Diagnosed Date Help patients manage their type 2 diabetes 09/05 Weekly blood pressure task 09/05/2025 Help patients manage their type 2 diabetes 09/05 Patient has chronic kidney disease 09/05/2025 Weekly blood pressure task 09/05/2025 Patient has chronic kidney disease 09/05/[address] [address] [facility] < 65 SUSI GARCIA [phone] DENTAL - [facility] - HSN FULL (MEDICAID) Care Teams Tomography Technologist Relationship Specialty Start Date End Date Con Agee NP [address] [place] [address] PCP - General Internal Medicine 02/25/23 Hieu Mandujano Community Health Worker 09/07/23 Nina Claudio Community Health Worker 01/25/24 Dodie Scherer Foundry Tender 09/02/23
[2025-09-13 17:07] LABS: MANUAL DIFF FLAG NO
[2025-09-13 17:15] LABS: Hematocrit 46.9 % (42.0-52.0); Hemoglobin 16.6 g/dl (14.0-18.0); Imm Gran Abs Auto 0.02 X10*3/uL (0.00-0.03); Imm Gran Pct Auto 0.3 % (0.0-0.4); Lymphocytes Absolute Auto 1.9 X10*3/uL (1.2-4.9); Mean Corpuscular HGB Conc 35.4 g/dl (31.0-36.0); Mean Corpuscular Hemoglobin 29.8 pg (27.0-33.0); Mean Corpuscular Volume 84.2 fL (80.0-98.0); NRBC Abs Auto 0.000 X10*3/uL (0.0-0.012); NRBC Pct Auto 0.0 /100WBC (0.0-0.2); Platelet Count 163 X10*3/uL (160-400); Red Blood Count 5.57 X10*6/uL (4.60-5.80); White Blood Count 6.5 X10*3/uL (4.8-10.8)
[2025-09-13 17:32] LABS: Alanine Aminotransferase 63 U/L (0-40); Albumin Level 4.9 g/dL (3.5-5.0); Alkaline Phosphatase 76 U/L (39-117); Anion Gap 15 (12-20); Aspartate Amino Transferase 79 U/L (5-37); Blood Urea Nitrogen 12 mg/dL (9-16); Calcium 10.0 mg/dL (8.4-10.2); Carbon Dioxide 24 mmol/L (22-29); Chloride 107 mmol/L (96-108); Creatinine Clr Calc Pharmacy 88.7; Estimated Glomerular Filt Rate > 60; Potassium 4.0 mmol/L (3.3-5.1); Sodium 142 mmol/L (135-145); Total Protein 7.7 g/dL (6.5-8.0)
[2025-09-13 17:33] LABS: NT Pro B Type Natriuretic Pept 74.9 pg/mL (<300); Troponin-I High Sensitivity 7.8 ng/L (<3.5-35.0)
[2025-09-13 17:46] LABS: Resp Syncy Virus RNA Qual PCR NEGATIVE (Negative); SARS COV2 PCR INHOUSE NEGATIVE (Negative)
[2025-09-13 17:51] VITALS: BP 133/77; PULSE 88; RESP 20; TEMP 36.5; O2SAT 100
== END 2025-09-13 17:52 | disposition home or self-care (01) ==
PROVIDERS: Emergency Provider Emergency Medicine
DX: R07.9 Chest pain, unspecified (principal); M25.562 Pain in left knee; Z03.818 Encounter for observation for suspected exposure to other biological agents ruled out; R06.00 Dyspnea, unspecified; I10 Essential (primary) hypertension; E11.9 Type 2 diabetes mellitus without complications
CPT/HCPCS: 36415; 71046; 73564; 80048; 80076; 80307; 82947; 83880; 84484; 85025; 86140; 87637; 93005; 99283; 99284

== ENCOUNTER → 2025-09-13 16:15 | Outpatient (BNV) | payer OTHER, SELFPAY | PROVIDERS: Emergency Provider Emergency Medicine; Visit Provider Internal Medicine Cardiovascular Disease | DX: R07.9 Chest pain, unspecified (principal) | CPT/HCPCS: 93010 ==

== ENCOUNTER → 2025-09-13 16:15 | Outpatient (BNV) | payer OTHER, SELFPAY | PROVIDERS: Emergency Provider Emergency Medicine; Visit Provider Radiology Diagnostic Radiology | DX: M76.892 Other specified enthesopathies of left lower limb, excluding foot (principal); Z04.3 Encounter for examination and observation following other accident; R07.9 Chest pain, unspecified; R06.09 Other forms of dyspnea | CPT/HCPCS: 71046; 73564 ==